=== PATIENT | male | born 1940 | race Caucasian/White ===

== ENCOUNTER → 2016-07-30 | Outpatient (CLI) | payer OTHER, MEDICARE | LOC: EXRD 10:30 | DX: R20.2 Paresthesia of skin (principal); M47.896 Other spondylosis, lumbar region; W19.XXXA Unspecified fall, initial encounter | CPT/HCPCS: 72100 ==

== ENCOUNTER → 2016-08-15 | Outpatient (CLI) | payer OTHER | LOC: EMI 09:55 | DX: M54.5 Low back pain (principal); R20.2 Paresthesia of skin; M47.896 Other spondylosis, lumbar region; M47.897 Other spondylosis, lumbosacral region | CPT/HCPCS: 72148 ==

== ENCOUNTER 2021-02-09 13:48 | Emergency (ER) | payer OTHER ==
[2021-02-09 15:41] LABS: HEMOGLOBIN 16.1 gm/dl (14.0-17.5); RED BLOOD COUNT 5.29 M/UL (4.20-5.50); WHITE BLOOD COUNT 6.4 K/UL (4.5-11.0)
[2021-02-09 16:11] LABS: BUN/CREATININE RATIO 15 (0-10)
== END 2021-02-09 19:00 | disposition home or self-care (01) ==
LOC: ER1 13:48
PROVIDERS: Emergency Medicine
DX: U07.1 COVID-19 (principal); Z23 Encounter for immunization; I12.9 Hypertensive chronic kidney disease with stage 1 through stage 4 chronic kidney disease, or unspecified chronic kidney disease; N18.9 Chronic kidney disease, unspecified
CPT/HCPCS: 71045; 80053; 82550; 82553; 83874; 83880; 84484; 85025; 96374; 99283; J0360; M0245; U0002